=== PATIENT | male | born 1955 | race Caucasian/White ===

== ENCOUNTER 2021-09-21 11:06 | Emergency (ER) | payer MEDICARE, OTHER ==
[~2021-09-21] VITALS: Ht 188 cm; Wt 86.2 kg
[~2021-09-21 11:06] MED LIST: ASPIRIN EC81 MG PO; CHLORHEXIDINE473 ML PO; COZAAR100 MG PO; LISINOPRIL-HCT1 EAC2; NAPROXEN500 MG PO; NORCO 10-325 T1 EACH PO; PENICILLIN V P250 MG PO; PERCOCET 5-3251 EACH PO
--- OUTSIDE RECORDS SUMMARY | 2021-09-21 11:14 | XMS ---
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 Care Guidelines exist for the following facilities: [facility] ( 01/01/2017 ) [facility] ( 01/31/2016 ) [facility] ( 09/06/2015 ) [facility] ( 03/29/2015 ) [facility] ( 03/29/2015 ) [facility] ( 03/29/2015 ) [facility] ( 03/29/2015 ) [facility] VISIT COUNT (12 MO.) 1 [facility] 1 [facility] 2 [facility] [address] [facility] 1 [facility] 1 [facility] 1 [facility] 1 [facility] 1 [facility]. TOTAL 10 NOTE: Visits indicate total known visits. ED/UCC VISIT TRACKING (12 MO.) 09/21/2021 11:07 RADHA Giles TYPE: Emergency COMPLAINT: - NECK PAIN/ FALL 08/24/2021 14:35 Obed JONES TYPE: Emergency 07/28/2021 10:46 Sourav JONES TYPE: Emergency COMPLAINT: - fell, neck pain, arm psin 07/26/2021 10:40 Alyce JONES TYPE: Emergency COMPLAINT: - FALL,NECK PAIN DIAGNOSES: - custodial (current) use of non-steroidal anti-inflammatories (NSAID) - Other fall on same level, initial encounter - Contusion of unspecified part of head, initial encounter - Sprain of ligaments of cervical spine, initial encounter - Activity, walking an animal - Other residential (current) drug therapy - Personal history of nicotine dependence 07/21[facility]2021 13[facility] DIAGNOSES: - Strain of unspecified muscle, fascia and tendon at shoulder and upper arm level, left arm, initial encounter - Shoulder Injury 05/24/2021 14:12 [facility] Jennifer JONES TYPE: Emergency COMPLAINT: - UNK 03/23/2021 10:03 Billy PRECIADO TYPE: Emergency DIAGNOSES: - Back pain - Strain of muscle, fascia and tendon of lower back, initial encounter 02/25/2021 12:57 Alyce JONES TYPE: Emergency COMPLAINT: - KIDNEY PAIN DIAGNOSES: - Personal history of nicotine dependence - Hypertensive chronic kidney disease with stage 1 through stage 4 chronic kidney disease, or unspecified chronic kidney disease - 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 - Other residential (current) drug therapy - Chronic kidney disease, unspecified - Dorsalgia, unspecified 12/28/2020 12:08 [facility] Jennifer JONES TYPE: Emergency DIAGNOSES: - NECK INJ - Radiculopathy, cervical region 12/28/2020 10:[facility]: Emergency DIAGNOSES: - NECK PX, ARM PX - Neck Injury - Cervicalgia - NECK PX, ARM PX, PREVIOUS NECK FUSION - Other cervical disc degeneration, unspecified cervical region - Other symptoms and signs involving the musculoskeletal system INPATIENT VISIT TRACKING (12 MO.) No inpatient visits to display in this time frame [email or web address]
== END 2021-09-21 12:26 | disposition left against medical advice (07) ==
LOC: ED 11:06
DX: S16.1XXA Strain of muscle, fascia and tendon at neck level, initial encounter (principal); W01.10XA Fall on same level from slipping, tripping and stumbling with subsequent striking against unspecified object, initial encounter; I10 Essential (primary) hypertension; F17.200 Nicotine dependence, unspecified, uncomplicated; Z79.899 Other long term (current) drug therapy
CPT/HCPCS: 96372; 99283; J3360